=== PATIENT | female | born 1980 | race Caucasian/White ===

== ENCOUNTER 2018-05-30 09:21 | Day surgery (SDC) | payer MEDICAID ==
[2018-05-30] MEDS: CEFAZOLIN 2 GM/50 ML (PMX) 50 ML (FOR WT < 120 KG) IVPB (06:00)
[~2018-05-30 09:21] MED LIST: LACTATED RINGER'S 1,000 ML IV; SOD CHLORIDE 0.9% 1,000 ML IV
[2018-05-30 10:01] LABS: ADD MAN DIFF? NO
[2018-05-30 10:08] LABS: BASOPHILS % 0.7 % (0.0-2.0); EOSINOPHILS # 0.1 10^3/ul (0.0-0.5); EOSINOPHILS % 1.9 % (0.0-7.0); HEMATOCRIT 36.4 % (37.0-47.0); HEMOGLOBIN 11.9 g/dl (12.0-16.0); LYMPHOCYTES # 2.1 10^3/ul (0.8-2.9); LYMPHOCYTES % 36.9 % (15.0-51.0); MEAN CORPUSCULAR HEMOGLOBIN 29.5 pg (29.0-33.0); MEAN CORPUSCULAR HGB CONC 32.7 g/dl (32.0-37.0); MEAN CORPUSCULAR VOLUME 90.1 fl (82.0-101.0); MEAN PLATELET VOLUME 11.2 fl (7.4-10.4); MONOCYTE # 0.4 10^3/ul (0.3-0.9); MONOCYTES % 6.8 % (0.0-11.0); NEUTROPHIL # 3.1 10^3/ul (1.6-7.5); NEUTROPHILS % 53.5 % (39.0-77.0); PLATELET COUNT 225 10^3/UL (140-415); RED BLOOD COUNT 4.04 10^6/ul (4.20-5.40); RED CELL DISTRIBUTION WIDTH 13.2 % (11.5-14.5)
[2018-05-30 10:08] LABS: WHITE BLOOD COUNT 5.7 10^3/ul (4.8-10.8)
[2018-05-30] MEDS ORDERED: MIDAZOLAM 1 MG/ML 2 ML INJ (11:51)
[2018-05-30] MEDS ORDERED: FENTAnyl 50 MCG/ML VIAL ×2 (11:51→12:23)
[2018-05-30] MEDS: BUPIVACAINE 0.5%/EPI (SDV) 30 ML INJ (12:23)
[2018-05-30] MEDS ORDERED: GLYCOPYRROLATE 0.4 MG INJ (12:25)
[2018-05-30] MEDS ORDERED: LIDOCAINE 2% (SDV) 5 ML INJ (12:25)
[2018-05-30] MEDS ORDERED: CEFAZOLIN 1 GM INJ (12:25)
[2018-05-30] MEDS ORDERED: PROPOFOL 20 ML (12:25)
[2018-05-30] MEDS ORDERED: ROCURONIUM 50 MG INJ (12:25)
[2018-05-30] MEDS ORDERED: NEOSTIGMINE 10 MG INJ (12:25)
[2018-05-30] MEDS ORDERED: ONDANSETRON 4 MG INJ (12:49)
[2018-05-30] MEDS ORDERED: HYDROmorphONE 1 MG/5 ML IV SYRINGE IV (13:18)
[2018-05-30] MEDS: HYDROmorphONE 1 MG/5 ML IV SYRINGE IV ×3 (13:22→13:53)
[2018-05-30] MEDS ORDERED: DIPHENHYDRAMINE 50 MG INJ IV (13:30)
[2018-05-30] MEDS ORDERED: MEPERIDINE 25 MG INJ IV (13:30)
[2018-05-30] MEDS ORDERED: METOCLOPRAMIDE 10 MG INJ IV (13:30)
[2018-05-30] MEDS ORDERED: morphine 2 MG INJ IV (14:00)
[2018-05-30] MEDS ORDERED: ONDANSETRON 4 MG INJ IV (14:00)
[2018-05-30] MEDS ORDERED: HYDROCODONE/APAP (5/325) TAB PO (14:00)
[2018-05-30] MEDS: KETOROLAC 30 MG INJ IV (14:00)
[2018-05-30] MEDS ORDERED: KETOROLAC 30 MG INJ IV (14:00)
[2018-05-30] MEDS: FENTAnyl 50 MCG/ML VIAL IV ×4 (14:37→14:53)
[2018-05-30] MEDS: ONDANSETRON 4 MG INJ IV (14:56)
== END 2018-05-30 16:05 | disposition home or self-care (01) ==
LOC: SDS 09:21
DX: Z30.2 Encounter for sterilization (principal)
CPT/HCPCS: 58600; 84703; 85025; 86850; 86900; 86901; 88302